=== PATIENT | female | born 1970 ===

== ENCOUNTER 2017-11-08 09:41 | Emergency (ER) | payer OTHER ==
[2017-11-08 09:56] VITALS: TEMP 97.7; O2SAT 98
--- NOTE | 2017-11-08 10:23 | ED PDOC ---
Lower Extremity Pain/Injury Time Seen by Provider: 11/08/17 10:02 Chief Complaint (Nursing): Hip Pain Chief Complaint (Provider): Hip Pain History Per: Patient History/Exam Limitations: no limitations Onset/Duration Of Symptoms: Days (x 2 weeks) Current Symptoms Are (Timing): Still Present Additional Complaint(s): 47 year old female presents to the ED complaining of left sided hip pain, onset 2 weeks ago. She reports pain radiates down her leg and worsens when she stands or ambulates. Has taken Advil multiple times with little relief. Denies any paresthesias, weakness and trauma. PMD: none provided Past Medical History Reviewed: Historical Data, Nursing Documentation, Vital Signs Vital Signs: Last Vital Signs Temp 97.7 F 11/08/17 09:53 Pulse 77 11/08/17 09:53 Resp 16 11/08/17 09:53 BP 132/92 H 11/08/17 09:53 Pulse Ox 98 11/08/17 09:53 - Medical History PMH: Diabetes (diet and weight controlled), HTN - Surgical History Surgical History: Tonsillectomy Other surgeries: Tubal ligation - Family History Family History: States: Diabetes - Social History Current smoker - smoking cessation education provided: No Alcohol: None Drugs: Denies - Home Medications Home Medications: Ambulatory Orders Medication Instructions Recorded Famotidine [Pepcid] 20 mg PO BID #30 tab 03/26/15 Omeprazole [Prilosec] 20 mg PO DAILY #30 ecc 03/26/15 Acetaminophen with Codeine 2 tab PO Q4H PRN #22 tab 10/18/15 [Tylenol with Codeine No. 3 300 mg-30 mg] Clindamycin [Cleocin] 300 mg PO TID #21 cap 10/18/15 Fluconazole [Diflucan] 150 mg PO QWK #2 tab 10/18/15 Ibuprofen 600 mg PO Q8H PRN #60 tab 10/18/15 Cyclobenzaprine [Cyclobenzaprine 10 mg PO TID PRN #15 tab 11/08/17 HCl] Naproxen [Naprosyn] 500 mg PO BID PRN #15 tablet 11/08/17 - Allergies Allergies/Adverse Reactions: Allergies Allergy/AdvReac Type Severity Reaction Status Date / Time diphenhydramine HCl Allergy ANGIOEDEMA Verified 11/08/17 09:53 [From Benadryl] Review of Systems ROS Statement: Except As Marked, All Systems Reviewed And Found Negative Constitutional: Negative for: Weakness, Other (paresthesia) Musculoskeletal: Positive for: Other (radiating left hip pain) Physical Exam - Reviewed Vital Signs Reviewed: Yes - Physical Exam Appears: Positive for: Non-toxic, No Acute Distress Head Exam: Positive for: ATRAUMATIC, NORMOCEPHALIC Skin: Positive for: Normal Color, Warm, Dry Eye Exam: Positive for: EOMI, Normal appearance, PERRL Extremity: Positive for: Normal ROM (full at left hip), Tenderness (left lateral hip ). Negative for: Swelling, Other (straight leg test) Neurologic/Psych: Positive for: Alert, Oriented. Negative for: Motor/Sensory Deficits - ECG O2 Sat by Pulse Oximetry: 98 (RA) Pulse Ox Interpretation: Normal Medical Decision Making Medical Decision Making: Time: Impression: Hip pain Plan: --Urine dipstick --urine --Flexeril 10 mg PO --Motrin 600 mg PO --Left hip x-ray Accession No. : [id number] Patient Name / ID : GUSTAVO EPSTEIN / [id number] Exam Date : 11/08/2017 10:13:41 ( Approved ) Study Comment : Sex / Age : F / 47Y Creator : Yan Tracy MD Dictator : Yan Tracy MD Kindergarten Aide : Apartment Community Manager : Yan Tracy MD Approver2 : Report Date : 11/08/2017 14:52:15 My Comment : PROCEDURE: Left Hip X-ray Radiographs. HISTORY: L hip pain COMPARISON: None. FINDINGS: BONES: Normal. No fracture. JOINTS: Normal. SOFT TISSUES: Normal. OTHER FINDINGS: None. IMPRESSION: Normal left hip radiographs. Scribe Attestation: Documented by Claritza Rothman, acting as a scribe for Cherrie Ruiz MD Provider Scribe Attestation: All medical record entries made by the Scribe were at my direction and personally dictated by me. I have reviewed the chart and agree that the record accurately reflects my personal performance of the history, physical exam, medical decision making, and the department course for this patient. I have also personally directed, reviewed, and agree with the discharge instructions and disposition. Disposition - Clinical Impression Clinical Impression: Hip pain - Disposition Referrals: [facility] [Outside] Disposition: Routine/Home Disposition Time: 11:28 Condition: STABLE Prescriptions: Cyclobenzaprine [Cyclobenzaprine HCl] 10 mg PO TID PRN #15 tab PRN Reason: Pain Naproxen [Naprosyn] 500 mg PO BID PRN #15 tablet PRN Reason: Pain, Moderate (4-7) Instructions: Hip Pain (ED) Forms: [employer] (Croatian)
[2017-11-08 11:53] VITALS: BP 129/85; PULSE 78; RESP 18
--- NOTE | 2017-11-08 14:53 | RAD ---
PROCEDURE: Left Hip X-ray Radiographs. HISTORY: L hip pain COMPARISON: None. FINDINGS: BONES: Normal. No fracture. JOINTS: Normal. SOFT TISSUES: Normal. OTHER FINDINGS: None. IMPRESSION: Normal left hip radiographs.
== END 2017-11-08 11:53 | disposition home or self-care (01) ==
LOC: H.ER 09:41
DX: M25.552 Pain in left hip (principal); E11.9 Type 2 diabetes mellitus without complications; I10 Essential (primary) hypertension

== ENCOUNTER 2018-05-30 07:46 | Observation (INO) | payer OTHER ==
[2018-05-30 07:52] VITALS: BMI 30.7
[2018-05-30] MEDS ORDERED: Sodium Chloride 0.9% 1,000 ML IV STA (08:41)
[2018-05-30 09:02] LABS: SQUAMOUS EPITHIAL 1 /hpf (0-5); URINE BILIRUBIN NEGATIVE (NEGATIVE); URINE BLOOD NEGATIVE (NEGATIVE); URINE CLARITY CLEAR (Clear); URINE COLOR STRAW (YELLOW); URINE GLUCOSE (UA) NEG (Normal); URINE LEUKOCYTE ESTERASE NEG Leu/uL (Negative); URINE PROTEIN NEGATIVE (NEGATIVE); URINE UROBILINOGEN 0.2-1.0 mg/dL (0.2-1.0)
[2018-05-30 09:03] LABS: BASO % 0.6 % (0.0-2.0); EOS # 0.1 K/uL (0.0-0.7); EOS % 0.8 % (0.0-4.0); LYMPH # 2.8 K/uL (1.0-4.3); LYMPH % 35.4 % (20.0-40.0); MEAN CELL VOLUME 78.4 fl (81.0-99.0); MEAN CORPUSCULAR HEMOGLOBIN 25.8 pg (27.0-31.0); MEAN CORPUSCULAR HGB CONC 32.9 g/dL (33.0-37.0); MEAN PLATELET VOLUME 9.1 fl (7.2-11.7); MONO # 0.5 K/uL (0.0-0.8); MONO % 6.4 % (0.0-10.0); NEUT # 4.6 K/uL (1.8-7.0); NEUT % 56.8 % (50.0-75.0); RBC 5.82 Mil/uL (3.80-5.20); RED CELL DISTRIBUTION WIDTH 14.6 % (11.5-14.5)
[2018-05-30 09:14] LABS: CALCIUM 9.6 mg/dL (8.4-10.2); GFR AFRICAN-AMERICAN > 60; GFR NON-AFRICAN AMERICAN > 60; LIPASE 64 U/L (23-300)
[2018-05-30 09:24] LABS: ALB/GLOB RATIO 1.3 (1.0-2.1); ALBUMIN 4.7 g/dL (3.5-5.0); ALT/SGPT 11 U/L (9-52); AST/SGOT 45 U/L (14-36); BLOOD UREA NITROGEN 15 mg/dl (7-17)
[2018-05-30] MEDS ORDERED: Sodium Chloride 0.9% 50 ML IV ONE (10:17)
[2018-05-30] MEDS ORDERED: Iohexol 300 100 ML IJ ONE (10:17)
--- NOTE | 2018-05-30 10:54 | CT ---
Date of service: 05/30/2018 PROCEDURE: CT Abdomen and Pelvis with contrast HISTORY: RUQ and R flank pain no hematuria COMPARISON: Abdomen pelvis CT with contrast 11/24/2015. TECHNIQUE: Contrast dose: Omnipaque 300, 95 cc Radiation dose: Total exam DLP = 562.59 mGy-cm. This CT exam was performed using one or more of the following dose reduction techniques: Automated exposure control, adjustment of the mA and/or kV according to patient size, and/or use of iterative reconstruction technique. FINDINGS: LOWER THORAX: Unremarkable. LIVER: Mildly diminished density of the liver suggests an element of hepatic steatosis diffusely. No mass or intrahepatic biliary dilatation appreciable. GALLBLADDER AND BILE DUCTS: Unremarkable. PANCREAS: Unremarkable. No gross lesion or ductal dilatation. SPLEEN: Unremarkable. ADRENALS: Unremarkable. No mass. KIDNEYS AND URETERS: Unremarkable. No hydronephrosis. No solid mass. VASCULATURE: Unremarkable. No aortic aneurysm. BOWEL: Unremarkable. No obstruction. No gross mural thickening. APPENDIX: Normal appendix. PERITONEUM: Unremarkable. No free fluid. No free air. LYMPH NODES: Unremarkable. No enlarged lymph nodes. BLADDER: Unremarkable. REPRODUCTIVE: Left adnexal compartment remarkable for crenating follicle identified. Prior creating follicle the right and compartment now resolved. BONES: No acute fracture. OTHER FINDINGS: None. IMPRESSION: 1. Unremarkable appearing gallbladder with mild hepatic steatosis seen throughout the liver which is otherwise unremarkable. 2. Crenating follicle left adnexal compartment.
--- NOTE | 2018-05-30 11:01 | US ---
Date of service: 05/30/2018 HISTORY: R flank RUQ pain x3d COMPARISON: None. TECHNIQUE: Sonographic evaluation of the abdomen. FINDINGS: LIVER: Measures 15.7 cm. Normal echogenicity of the liver parenchyma. No mass. No intrahepatic bile duct dilatation. A Marci's lobe is seen extending inferior to the lower pole right kidney at the right lobe liver. GALLBLADDER: Unremarkable. No gallstones. COMMON BILE DUCT: Measures 3.5 mm. No stones. No dilatation. PANCREAS: The tail of the pancreas is obscured by overlying bowel gas with remainder unremarkable. RIGHT KIDNEY: Measures 10.5cm. Normal echogenicity. No calculus, mass, or hydronephrosis. LEFT KIDNEY: Measures 11.1cm. Normal echogenicity. No calculus, mass, or hydronephrosis. SPLEEN: Normal in size and contour. No mass. AORTA: No aneurysmal dilatation. IVC: Unremarkable. OTHER FINDINGS: None. IMPRESSION: Incomplete imaging of the pancreas at the level of tail with remainder appearing unremarkable. No suspicious abdominal findings are otherwise identified throughout the exam.
--- NOTE | 2018-05-30 12:10 | RAD ---
Date of service: 05/30/2018 HISTORY: RUQ pain COMPARISON: 10/13/2008 TECHNIQUE: Chest PA and lateral FINDINGS: LUNGS: No active pulmonary disease. PLEURA: No significant pleural effusion identified. No pneumothorax apparent. CARDIOVASCULAR: Normal. OSSEOUS STRUCTURES: No significant abnormalities. VISUALIZED UPPER ABDOMEN: Normal. OTHER FINDINGS: None. IMPRESSION: No active disease. No significant interval change compared to the prior examination(s).
--- NOTE | 2018-05-30 14:53 | ED PDOC ---
HPI: General Adult Time Seen by Provider: 05/30/18 08:26 Chief Complaint (Nursing): Back Pain Chief Complaint (Provider): abdominal and back pain History Per: Patient History/Exam Limitations: no limitations Onset/Duration Of Symptoms: Days (3), Gradual Current Symptoms Are (Timing): Still Present Severity: Severe Additional Complaint(s): 48yo female states developed R abdominal pain radiating to the back x3 days. Took advil without relief yesterday. Today associated w nausea and loss appetite. Denies melena, BRBPR, hematemesis, fever or hematuria/dysuria. No prior history of similar pain. Notes pain worse with sitting still. Past Medical History Reviewed: Historical Data, Nursing Documentation, Vital Signs Vital Signs: Last Vital Signs Temp 98.4 F 05/30/18 07:52 Pulse 71 05/30/18 07:52 Resp 20 05/30/18 07:52 BP 129/89 05/30/18 07:52 Pulse Ox 99 05/30/18 16:17 - Medical History PMH: Diabetes (diet and weight controlled), HTN - Surgical History Surgical History: Tonsillectomy - Family History Family History: States: Diabetes - Living Arrangements Living Arrangements: With Family - Social History Current smoker - smoking cessation education provided: No Alcohol: None Drugs: Denies - Immunization History Hx Tetanus Toxoid Vaccination: No Hx Influenza Vaccination: No Hx Pneumococcal Vaccination: No - Home Medications Home Medications: Ambulatory Orders Medication Instructions Recorded No Known Home Med 05/30/18 - Allergies Allergies/Adverse Reactions: Allergies Allergy/AdvReac Type Severity Reaction Status Date / Time diphenhydramine HCl Allergy ANGIOEDEMA Verified 05/30/18 08:06 [From Benadryl] Review of Systems Constitutional: Negative for: Fever, Weight loss Eyes: Negative for: Vision Change ENT: Negative for: Nose Discharge Cardiovascular: Negative for: Chest Pain Respiratory: Negative for: Shortness of Breath Gastrointestinal: Positive for: Nausea, Abdominal Pain. Negative for: Constipation, Melena, Rectal Pain Genitourinary Female: Negative for: Dysuria, Frequency, Hematuria Musculoskeletal: Positive for: Back Pain. Negative for: Neck Pain Skin: Negative for: Rash, Lesions Neurological: Positive for: Dizziness. Negative for: Weakness, Numbness, Confusion Psych: Negative for: Depression Physical Exam - Reviewed Nursing Documentation Reviewed: Yes Vital Signs Reviewed: Yes - Physical Exam Appears: Positive for: Well, Non-toxic, No Acute Distress Head Exam: Positive for: ATRAUMATIC, NORMAL INSPECTION, NORMOCEPHALIC Skin: Positive for: Normal Color, Warm, DRY Eye Exam: Positive for: EOMI, Normal appearance, PERRL ENT: Positive for: Normal ENT Inspection Neck: Positive for: Normal, Painless ROM Cardiovascular/Chest: Positive for: Regular Rate, Rhythm Respiratory: Positive for: CNT, Normal Breath Sounds Pulses-Radial (L): 3+/4+ Pulses-Radial (R): 3+/4+ Gastrointestinal/Abdominal: Positive for: Soft, Tenderness (RUQ). Negative for : Guarding, Rebound Back: Positive for: R CVA Tenderness Extremity: Positive for: Normal ROM Neurologic/Psych: Positive for: Alert, Oriented. Negative for: Motor/Sensory Deficits - Laboratory Results Result Diagrams: 05/30/18 08:47 05/30/18 08:47 - ECG O2 Sat by Pulse Oximetry: 99 Medical Decision Making Medical Decision Making: workup for RUQ pain initiated, labs and analgesia ordered US abdomen report reviewed. CT abd pelv thus ordered Labs reviewed and clinically unremarkable Further pain medicine required for relief of pain protonix IV ordered Accession No. : [id number] Patient Name / ID : GUSTAVO EPSTEIN / [id number] Exam Date : 05/30/2018 10:24:56 ( Approved ) Study Comment : Sex / Age : F / 48Y Creator : Perdo Spivey MD Dictator : Pedro Spivey MD Small Business Director : Lead Android Developer : Pedro Spivey MD Approver2 : Report Date : 05/30/2018 10:52:54 My Comment : Date of service: 05/30/2018 PROCEDURE: CT Abdomen and Pelvis with contrast HISTORY: RUQ and R flank pain no hematuria COMPARISON: Abdomen pelvis CT with contrast 11/24/2015. TECHNIQUE: Contrast dose: Omnipaque 300, 95 cc Radiation dose: Total exam DLP = 562.59 mGy-cm. This CT exam was performed using one or more of the following dose reduction techniques: Automated exposure control, adjustment of the mA and/or kV according to patient size, and/or use of iterative reconstruction technique. FINDINGS: LOWER THORAX: Unremarkable. LIVER: Mildly diminished density of the liver suggests an element of hepatic steatosis diffusely. No mass or intrahepatic biliary dilatation appreciable. GALLBLADDER AND BILE DUCTS: Unremarkable. PANCREAS: Unremarkable. No gross lesion or ductal dilatation. SPLEEN: Unremarkable. ADRENALS: Unremarkable. No mass. KIDNEYS AND URETERS: Unremarkable. No hydronephrosis. No solid mass. VASCULATURE: Unremarkable. No aortic aneurysm. BOWEL: Unremarkable. No obstruction. No gross mural thickening. APPENDIX: Normal appendix. PERITONEUM: Unremarkable. No free fluid. No free air. LYMPH NODES: Unremarkable. No enlarged lymph nodes. BLADDER: Unremarkable. REPRODUCTIVE: Left adnexal compartment remarkable for crenating follicle identified. Prior creating follicle the right and compartment now resolved. BONES: No acute fracture. OTHER FINDINGS: None. IMPRESSION: 1. Unremarkable appearing gallbladder with mild hepatic steatosis seen throughout the liver which is otherwise unremarkable. 2. Crenating follicle left adnexal compartment. --------- patient remains in pain and not responsive to multiple doses narcotics. Obs in ED 6hrs without improvement. Will place in obs d/w Dr Finney and acquire GI consult d/w Dr Bojorquez GI, requests MRCP and will consult Disposition - Clinical Impression Clinical Impression: Abdominal pain, Back pain - Patient ED Disposition Is Patient to be Admitted: Yes Counseled Patient/Family Regarding: Studies Performed, Diagnosis - Disposition Disposition Time: 15:01 Condition: STABLE
[2018-05-30] MEDS ORDERED: Bisacodyl 5mg EC Tab PO ONE (17:55)
[2018-05-30] MEDS ORDERED: Pneumococcal 23-Valent Vaccine IM ONE (20:17)
[2018-05-30] MEDS: Sodium Chloride 0.45% 500ml 1,000 ML IV SCH (20:36)
[2018-05-30] MEDS: POLYETHYLENE GLYCOL 3350 17 GM/Dose PACKET PO SCH (21:57)
[2018-05-31 07:35] LABS: BASO % 0.5 % (0.0-2.0); EOS # 0.1 K/uL (0.0-0.7); HEMOGLOBIN 13.8 g/dL (12.0-16.0); LYMPH # 2.6 K/uL (1.0-4.3); LYMPH % 33.4 % (20.0-40.0); MEAN CELL VOLUME 77.7 fl (81.0-99.0); MEAN CORPUSCULAR HEMOGLOBIN 25.6 pg (27.0-31.0); MEAN PLATELET VOLUME 9.1 fl (7.2-11.7); MONO # 0.4 K/uL (0.0-0.8); MONO % 5.1 % (0.0-10.0); NEUT # 4.6 K/uL (1.8-7.0); NRBC % 0.2 % (0.0-0.0); RBC 5.38 Mil/uL (3.80-5.20); RED CELL DISTRIBUTION WIDTH 14.2 % (11.5-14.5); WHITE BLOOD COUNT 7.6 K/uL (4.8-10.8)
[2018-05-31 08:00] LABS: T4 7.32 ug/dl (5.5-11.0)
[2018-05-31 08:06] LABS: ALB/GLOB RATIO 1.5 (1.0-2.1); ALBUMIN 3.8 g/dL (3.5-5.0); ALT/SGPT 27 U/L (9-52); AST/SGOT 15 U/L (14-36); BLOOD UREA NITROGEN 10 mg/dl (7-17); GFR AFRICAN-AMERICAN > 60; GFR NON-AFRICAN AMERICAN > 60; HDL CHOLESTEROL 45 MG/DL (30-70); LDL CHOLESTEROL 116 mg/dL (0-129)
--- NOTE | 2018-05-31 08:53 | CP.PCM.CON ---
<Leroy Finney - Last Filed: 05/31/18 13:42> Meds Allergies/Adverse Reactions: Allergies Allergy/AdvReac Type Severity Reaction Status Date / Time diphenhydramine HCl Allergy ANGIOEDEMA Verified 05/30/18 08:06 [From Benadandrezl] - Medications Medications: Current Medications Sodium Chloride (Sodium Chloride 0.45%) 1,000 mls @ 80 mls/hr IV .[id number] KEVON Stop: 05/31/18 19:58 Last Admin: 05/31/18 09:55 Dose: Not Given Morphine Sulfate (Morphine) 2 mg IVP Q4 PRN PRN Reason: Pain, moderate (4-7) Last Admin: 05/31/18 09:44 Dose: 2 mg Polyethylene Glycol (Miralax) 17 gm PO BID KEVON Last Admin: 05/31/18 09:55 Dose: Not Given Results - Vital Signs Recent Vital Signs: Last Vital Signs Temp 98.0 F 05/31/18 08:27 Pulse 76 05/31/18 08:27 Resp 19 05/31/18 08:27 BP 103/70 05/31/18 08:27 Pulse Ox 97 05/31/18 08:27 - Labs Result Diagrams: 05/31/18 06:30 05/31/18 06:30 Labs: Laboratory Results - last 24 hr 05/30/18 05/30/18 05/31/18 17:40 21:38 05:34 WBC RBC Hgb Hct MCV MCH MCHC RDW Plt Count MPV Neut % (Auto) Lymph % (Auto) Cobb % (Auto) Eos % (Auto) Baso % (Auto) Neut # (Auto) Lymph # (Auto) Cobb # (Auto) Eos # (Auto) Baso # (Auto) Sodium Potassium 4.6 Chloride Carbon Dioxide Anion Gap BUN Creatinine Est GFR ( Amer) Est GFR (Non-Af Amer) POC Glucose (mg/dL) 100 100 Random Glucose Hemoglobin A1c Calcium Iron TIBC % Saturation Ferritin Total Bilirubin AST ALT Alkaline Phosphatase Total Protein Albumin Globulin Albumin/Globulin Ratio Triglycerides Cholesterol LDL Cholesterol Direct HDL Cholesterol Carcinoembryonic Ag Thyroxine (T4) TSH 3rd Generation 05/31/18 05/31/18 05/31/18 06:30 06:30 06:30 WBC 7.6 RBC 5.38 H Hgb 13.8 Hct 41.8 MCV 77.7 L MCH 25.6 L MCHC 33.0 RDW 14.2 Plt Count 175 MPV 9.1 Neut % (Auto) 60.0 Lymph % (Auto) 33.4 Cobb % (Auto) 5.1 Eos % (Auto) 1.0 Baso % (Auto) 0.5 Neut # (Auto) 4.6 Lymph # (Auto) 2.6 Cobb # (Auto) 0.4 Eos # (Auto) 0.1 Baso # (Auto) 0.0 Sodium 140 Potassium 4.6 Chloride 106 Carbon Dioxide 23 Anion Gap 16 BUN 10 Creatinine 0.7 Est GFR ( Amer) > 60 Est GFR (Non-Af Amer) > 60 POC Glucose (mg/dL) Random Glucose 96 Hemoglobin A1c 6.9 H Calcium 9.0 Iron TIBC % Saturation Ferritin Total Bilirubin 0.6 AST 15 ALT 27 Alkaline Phosphatase 75 Total Protein 6.4 Albumin 3.8 Globulin 2.6 Albumin/Globulin Ratio 1.5 Triglycerides 130 Cholesterol 187 LDL Cholesterol Direct 116 HDL Cholesterol 45 Carcinoembryonic Ag 1.3 Thyroxine (T4) 7.32 TSH 3rd Generation 0.92 05/31/18 05/31/18 05/31/18 08:58 09:40 10:34 WBC RBC Hgb Hct MCV MCH MCHC RDW Plt Count MPV Neut % (Auto) Lymph % (Auto) Cobb % (Auto) Eos % (Auto) Baso % (Auto) Neut # (Auto) Lymph # (Auto) Cobb # (Auto) Eos # (Auto) Baso # (Auto) Sodium Potassium Chloride Carbon Dioxide Anion Gap BUN Creatinine Est GFR ( Amer) Est GFR (Non-Af Amer) POC Glucose (mg/dL) 126 H Random Glucose Hemoglobin A1c Calcium Iron 110 TIBC 397 % Saturation 28 Ferritin 25.6 Total Bilirubin AST ALT Alkaline Phosphatase Total Protein Albumin Globulin Albumin/Globulin Ratio Triglycerides Cholesterol LDL Cholesterol Direct HDL Cholesterol Carcinoembryonic Ag Thyroxine (T4) TSH 3rd Generation <Jefferson Hansen - Last Filed: 05/31/18 14:01> History of Present Illness - History of Present Illness History of Present Illness: GI Fellow PGY4, Consult note. Carine Mosher is a 48 F with history of gallstones presenting with new abdominal pain. Patient's pain started 2 days ago with out obvious incident and worsened to 8/10 pressure that was mostly in her right abdomen and right mid back. Pain was constant and not associated with position, food or medication use. She denied vomiting, diarrhea, nausea, fever, SOB, sweating, jaw pain, lightheadedness, numbness/weakness. She states she has been having hard stool, but having BMs regularly. Her LMP was last month. PMHx - Gallstone while 15yrs ago PSHx - none FMHx - denies GI related cancer or liver disease SocHx - Denies alcohol. Daily smoker, "2 cigarettes per day". 12pt ROS completed and negative except for above. Past Patient History - Past Medical History & Family History Past Medical History?: Yes - Past Social History Smoking Status: Light Smoker < 10 Cigarettes Daily - CARDIAC Hx Hypertension: Yes (Controlled with diet/Weight loss) - ENDOCRINE/METABOLIC Hx Diabetes Mellitus Type 2: Yes (Controlled with diet/weight loss) - HEMATOLOGICAL/ONCOLOGICAL Hx Blood Disorders: No - INTEGUMENTARY Hx Dermatological Problems: No - MUSCULOSKELETAL/RHEUMATOLOGICAL Hx Musculoskeletal Disorders: No Hx Falls: No - GASTROINTESTINAL Hx Gastrointestinal Disorders: No - GENITOURINARY/GYNECOLOGICAL Hx Genitourinary Disorders: No - PSYCHIATRIC Hx Psychophysiologic Disorder: No Hx Substance Use: No - SURGICAL HISTORY Hx Surgeries: Yes Hx Tonsillectomy: Yes Hx Tubal Ligation: Yes - ANESTHESIA Hx Anesthesia: Yes Hx Anesthesia Reactions: No Meds - Medications Medications: Current Medications Sodium Chloride (Sodium Chloride 0.45%) 1,000 mls @ 80 mls/hr IV .[id number] [facility] Stop: 05/31/18 19:58 Last Admin: 05/30/18 20:36 Dose: 80 mls/hr Morphine Sulfate (Morphine) 2 mg IVP Q4 PRN PRN Reason: Pain, moderate (4-7) Last Admin: 05/31/18 04:15 Dose: 2 mg Polyethylene Glycol (Miralax) 17 gm PO BID [facility] Last Admin: 05/30/18 21:57 Dose: Not Given Physical Exam - Constitutional Appears: Well, Non-toxic, No Acute Distress - Head Exam Head Exam: ATRAUMATIC, NORMAL INSPECTION - Eye Exam Eye Exam: EOMI, Normal appearance - ENT Exam ENT Exam: Normal Exam - Respiratory Exam Respiratory Exam: Clear to Auscultation Bilateral, NORMAL BREATHING PATTERN. absent: Stridor - Cardiovascular Exam Cardiovascular Exam: REGULAR RHYTHM, +S1, +S2 - GI/Abdominal Exam GI & Abdominal Exam: Hypoactive Bowel Sounds, Soft, Tenderness. absent: Guarding - Neurological Exam Neurological exam: CN II-XII Intact, Normal Gait, Oriented x3 - Psychiatric Exam Psychiatric exam: Normal Affect, Normal Mood - Skin Skin Exam: Dry, Intact, Warm Results - Vital Signs Recent Vital Signs: Last Vital Signs Temp 98.0 F 05/31/18 08:27 Pulse 76 05/31/18 08:27 Resp 19 05/31/18 08:27 BP 103/70 05/31/18 08:27 Pulse Ox 97 05/31/18 08:27 - Labs Result Diagrams: 05/31/18 06:30 05/31/18 06:30 Labs: Laboratory Results - last 24 hr 05/30/18 05/30/18 05/30/18 08:47 08:47 08:47 WBC 8.0 RBC 5.82 H Hgb 15.0 Hct 45.6 MCV 78.4 L MCH 25.8 L MCHC 32.9 L RDW 14.6 H Plt Count 206 MPV 9.1 Neut % (Auto) 56.8 Lymph % (Auto) 35.4 Cobb % (Auto) 6.4 Eos % (Auto) 0.8 Baso % (Auto) 0.6 Neut # (Auto) 4.6 Lymph # (Auto) 2.8 Cobb # (Auto) 0.5 Eos # (Auto) 0.1 Baso # (Auto) 0.0 Sodium 138 Potassium 6.1 H Chloride 103 Carbon Dioxide 27 Anion Gap 14 BUN 15 Creatinine 0.6 L Est GFR ( Amer) > 60 Est GFR (Non-Af Amer) > 60 POC Glucose (mg/dL) Random Glucose 123 H Calcium 9.6 Total Bilirubin 1.0 AST 45 H ALT 11 Alkaline Phosphatase 89 Total Protein 8.2 Albumin 4.7 Globulin 3.5 Albumin/Globulin Ratio 1.3 Triglycerides Cholesterol LDL Cholesterol Direct HDL Cholesterol Lipase 64 Thyroxine (T4) TSH 3rd Generation Urine Color Straw Urine Clarity Clear Urine pH 7.0 Ur Specific Fate < 1.005 Urine Protein Negative Urine Glucose (UA) Neg Urine Ketones Negative Urine Blood Negative Urine Nitrate Negative Urine Bilirubin Negative Urine Urobilinogen 0.2-1.0 Ur Leukocyte Esterase Neg Urine RBC (Auto) < 1 Urine Microscopic WBC < 1 Ur Squamous Epith Cells 1 05/30/18 05/30/18 05/31/18 17:40 21:38 06:30 WBC 7.6 RBC 5.38 H Hgb 13.8 Hct 41.8 MCV 77.7 L MCH 25.6 L MCHC 33.0 RDW 14.2 Plt Count 175 MPV 9.1 Neut % (Auto) 60.0 Lymph % (Auto) 33.4 Cobb % (Auto) 5.1 Eos % (Auto) 1.0 Baso % (Auto) 0.5 Neut # (Auto) 4.6 Lymph # (Auto) 2.6 Cobb # (Auto) 0.4 Eos # (Auto) 0.1 Baso # (Auto) 0.0 Sodium Potassium 4.6 Chloride Carbon Dioxide Anion Gap BUN Creatinine Est GFR ( Amer) Est GFR (Non-Af Amer) POC Glucose (mg/dL) 100 Random Glucose Calcium Total Bilirubin AST ALT Alkaline Phosphatase Total Protein Albumin Globulin Albumin/Globulin Ratio Triglycerides Cholesterol LDL Cholesterol Direct HDL Cholesterol Lipase Thyroxine (T4) TSH 3rd Generation Urine Color Urine Clarity Urine pH Ur Specific Fate Urine Protein Urine Glucose (UA) Urine Ketones Urine Blood Urine Nitrate Urine Bilirubin Urine Urobilinogen Ur Leukocyte Esterase Urine RBC (Auto) Urine Microscopic WBC Ur Squamous Epith Cells 05/31/18 06:30 WBC RBC Hgb Hct MCV MCH MCHC RDW Plt Count MPV Neut % (Auto) Lymph % (Auto) Cobb % (Auto) Eos % (Auto) Baso % (Auto) Neut # (Auto) Lymph # (Auto) Cobb # (Auto) Eos # (Auto) Baso # (Auto) Sodium 140 Potassium 4.6 Chloride 106 Carbon Dioxide 23 Anion Gap 16 BUN 10 Creatinine 0.7 Est GFR ( Amer) > 60 Est GFR (Non-Af Amer) > 60 POC Glucose (mg/dL) Random Glucose 96 Calcium 9.0 Total Bilirubin 0.6 AST 15 ALT 27 Alkaline Phosphatase 75 Total Protein 6.4 Albumin 3.8 Globulin 2.6 Albumin/Globulin Ratio 1.5 Triglycerides 130 Cholesterol 187 LDL Cholesterol Direct 116 HDL Cholesterol 45 Lipase Thyroxine (T4) 7.32 TSH 3rd Generation 0.92 Urine Color Urine Clarity Urine pH Ur Specific Fate Urine Protein Urine Glucose (UA) Urine Ketones Urine Blood Urine Nitrate Urine Bilirubin Urine Urobilinogen Ur Leukocyte Esterase Urine RBC (Auto) Urine Microscopic WBC Ur Squamous Epith Cells Assessment & Plan - Assessment and Plan (Free Text) Assessment: 48F with history of gallstones presenting with new abdominal pain and negative abdominal imaging for acute pathology. CT abdomen/pelv with moderate amount of stool. #Abdominal/back pain #Possible constipation #History of gallstones #Microcytic anemia, chronic Plan: -CT and US imaging reviewed, no acute findings -Treat for constipation: Miralax, dulcolax, enema. Abdominal pain improved -Back pain still persists. Likely MSK. -w/u for iron deficiency anemia: occult stool, iron panel. Most likely related to menses. -Agree with TSH -Diet: regular as tolerated -Okay to d/c home per GI perspective - Date & Time Date: 05/31/18 Time: 08:54
[2018-05-31] MEDS: Sodium Chloride 0.45% 500ml 1,000 ML IV SCH ×2 (09:55→15:03)
[2018-05-31] MEDS: POLYETHYLENE GLYCOL 3350 17 GM/Dose PACKET PO SCH (09:55)
[2018-05-31 10:08] LABS: IRON 110 ug/dL (37-170)
[2018-05-31 10:17] LABS: % IRON SATURATION 28 % (20-55); TOTAL IRON BINDING CAPACITY 397 ug/dL (250-450)
--- NOTE | 2018-05-31 13:00 | CP.PCM.HP ---
History of Present Illness - History of Present Illness History of Present Illness: CC: Abdominal pain. 48 y/o F walk in to [facility] on 05/30/18 to be evaluated for abdominal pain that began on 05/27/18, gradually increased on DOA, Pt took Advil with no relief of symptom. Initially, c/o of abdominal pain, more prominent to R abdomen/R Flank, pain was sharp, burning sensation, intermittent, severe intensity 10:10, associated to nausea/ constipation. Worsening symptom: Loss of appetite. Aggravated factor: Prolonged sitting. Pt denied: fever, chills, vomiting, diarrhea, melena, urinary symptoms, CP, palpitations, dizziness, syncope, SOB, cough, sick contact, recent travel out of [facility]. CT Abd/Pelv and Abdomen U-S: No acute findings. Present on Admission - Present on Admission Any Indicators Present on Admission: No Review of Systems - Constitutional Constitutional: Other (negative) - EENT Eyes: Other (negative) Ears: Other (negative) Nose/Mouth/Throat: Other (negative) - Cardiovascular Cardiovascular: Other (negative) - Respiratory Respiratory: Other (negative) - Gastrointestinal Gastrointestinal: Abdominal Pain, Constipation, Nausea - Genitourinary Genitourinary: Flank Pain, Other (negative) - Musculoskeletal Musculoskeletal: Other (negative) - Integumentary Integumentary: Other (negative) - Neurological Neurological: Other (negative) - Psychiatric Psychiatric: Other (negative) - Endocrine Endocrine: Other (negative) - Hematologic/Lymphatic Hematologic: Other (negative) Past Patient History - Past Medical History & Family History Past Medical History?: Yes Pertinent Family History: Unknown - Past Social History Smoking Status: Light Smoker < 10 Cigarettes Daily Alcohol: Social Drugs: Denies Home Situation {Lives}: Alone - CARDIAC Hx Cardiac Disorders: Yes Hx Hypertension: Yes (Controlled with diet/Weight loss) - PULMONARY Hx Respiratory Disorders: No - NEUROLOGICAL Hx Neurological Disorder: No - HEENT Hx HEENT Problems: No - RENAL Hx Chronic Kidney Disease: No - ENDOCRINE/METABOLIC Hx Endocrine Disorders: Yes Hx Diabetes Mellitus Type 2: Yes (Controlled with diet/weight loss) - HEMATOLOGICAL/ONCOLOGICAL Hx Blood Disorders: Yes Hx Anemia: Yes - INTEGUMENTARY Hx Dermatological Problems: No - MUSCULOSKELETAL/RHEUMATOLOGICAL Hx Musculoskeletal Disorders: No Hx Falls: No - GASTROINTESTINAL Hx Gastrointestinal Disorders: No - GENITOURINARY/GYNECOLOGICAL Hx Genitourinary Disorders: No - PSYCHIATRIC Hx Psychophysiologic Disorder: No Hx Substance Use: No - SURGICAL HISTORY Hx Surgeries: Yes Hx Tonsillectomy: Yes Hx Tubal Ligation: Yes - ANESTHESIA Hx Anesthesia: Yes Hx Anesthesia Reactions: No Meds Allergies/Adverse Reactions: Allergies Allergy/AdvReac Type Severity Reaction Status Date / Time diphenhydramine HCl Allergy ANGIOEDEMA Verified 05/30/18 08:06 [From Benadryl] Physical Exam - Constitutional Appears: No Acute Distress - Head Exam Head Exam: NORMAL INSPECTION - Eye Exam Eye Exam: PERRL - ENT Exam ENT Exam: Normal Exam - Neck Exam Neck exam: Positive for: Normal Inspection - Respiratory Exam Respiratory Exam: Clear to Auscultation Bilateral - Cardiovascular Exam Cardiovascular Exam: REGULAR RHYTHM - GI/Abdominal Exam GI & Abdominal Exam: Hypoactive Bowel Sounds, Soft, Tenderness (mild). absent: Guarding, Rebound - Extremities Exam Extremities exam: Positive for: normal inspection - Back Exam Back exam: NORMAL INSPECTION - Neurological Exam Neurological exam: Alert, Oriented x3 Additional comments: No motor/sensory deficit. - Psychiatric Exam Psychiatric exam: Normal Mood - Skin Skin Exam: Normal Color, Warm Results - Vital Signs Recent Vital Signs: Last Vital Signs Temp 98.0 F 05/31/18 08:27 Pulse 76 05/31/18 08:27 Resp 19 05/31/18 08:27 BP 103/70 05/31/18 08:27 Pulse Ox 97 05/31/18 08:27 reviewed Pravin - Labs Result Diagrams: 05/31/18 06:30 05/31/18 06:30 Labs: Laboratory Results - last 24 hr 05/30/18 05/30/18 05/31/18 17:40 21:38 05:34 WBC RBC Hgb Hct MCV MCH MCHC RDW Plt Count MPV Neut % (Auto) Lymph % (Auto) Elliott % (Auto) Eos % (Auto) Baso % (Auto) Neut # (Auto) Lymph # (Auto) Elliott # (Auto) Eos # (Auto) Baso # (Auto) Sodium Potassium 4.6 Chloride Carbon Dioxide Anion Gap BUN Creatinine Est GFR ( Amer) Est GFR (Non-Af Amer) POC Glucose (mg/dL) 100 100 Random Glucose Hemoglobin A1c Calcium Iron TIBC % Saturation Ferritin Total Bilirubin AST ALT Alkaline Phosphatase Total Protein Albumin Globulin Albumin/Globulin Ratio Triglycerides Cholesterol LDL Cholesterol Direct HDL Cholesterol Carcinoembryonic Ag Thyroxine (T4) TSH 3rd Generation 05/31/18 05/31/18 05/31/18 06:30 06:30 06:30 WBC 7.6 RBC 5.38 H Hgb 13.8 Hct 41.8 MCV 77.7 L MCH 25.6 L MCHC 33.0 RDW 14.2 Plt Count 175 MPV 9.1 Neut % (Auto) 60.0 Lymph % (Auto) 33.4 Elliott % (Auto) 5.1 Eos % (Auto) 1.0 Baso % (Auto) 0.5 Neut # (Auto) 4.6 Lymph # (Auto) 2.6 Elliott # (Auto) 0.4 Eos # (Auto) 0.1 Baso # (Auto) 0.0 Sodium 140 Potassium 4.6 Chloride 106 Carbon Dioxide 23 Anion Gap 16 BUN 10 Creatinine 0.7 Est GFR ( Amer) > 60 Est GFR (Non-Af Amer) > 60 POC Glucose (mg/dL) Random Glucose 96 Hemoglobin A1c 6.9 H Calcium 9.0 Iron TIBC % Saturation Ferritin Total Bilirubin 0.6 AST 15 ALT 27 Alkaline Phosphatase 75 Total Protein 6.4 Albumin 3.8 Globulin 2.6 Albumin/Globulin Ratio 1.5 Triglycerides 130 Cholesterol 187 LDL Cholesterol Direct 116 HDL Cholesterol 45 Carcinoembryonic Ag 1.3 Thyroxine (T4) 7.32 TSH 3rd Generation 0.92 05/31/18 05/31/18 05/31/18 08:58 09:40 10:34 WBC RBC Hgb Hct MCV MCH MCHC RDW Plt Count MPV Neut % (Auto) Lymph % (Auto) Elliott % (Auto) Eos % (Auto) Baso % (Auto) Neut # (Auto) Lymph # (Auto) Elliott # (Auto) Eos # (Auto) Baso # (Auto) Sodium Potassium Chloride Carbon Dioxide Anion Gap BUN Creatinine Est GFR ( Amer) Est GFR (Non-Af Amer) POC Glucose (mg/dL) 126 H Random Glucose Hemoglobin A1c Calcium Iron 110 TIBC 397 % Saturation 28 Ferritin 25.6 Total Bilirubin AST ALT Alkaline Phosphatase Total Protein Albumin Globulin Albumin/Globulin Ratio Triglycerides Cholesterol LDL Cholesterol Direct HDL Cholesterol Carcinoembryonic Ag Thyroxine (T4) TSH 3rd Generation reviewed J.P. - EKG Data EKG comments: reviewed J.P. - Imaging and Cardiology US - abdomen Status: Report reviewed by me (Pravin) CT scan - abdomen Status: Report reviewed by (Pravin) CT scan - pelvis Status: Report reviewed by me (Pravin) Assessment & Plan (1) Acute abdominal pain in right flank Status: Acute Priority: High (2) Constipation Status: Acute Priority: High - Assessment and Plan (Free Text) Plan: Continue IV fluid, Enema, Polyethylene, Morphine. GI consult appreciated. - Date & Time Date: 05/31/18 Time: 11:30
--- NOTE | 2018-05-31 13:54 | CT ---
Date of service: 05/31/2018 PROCEDURE: CT Lumbar Spine without contrast HISTORY: Back pain COMPARISON: None available. TECHNIQUE: Axial computed tomography images were obtained of the lumbar spine without the use of intravenous contrast. Coronal and sagittal reformatted images were created and reviewed. Radiation dose: Total exam DLP = 1112.97 mGy-cm. This CT exam was performed using one or more of the following dose reduction techniques: Automated exposure control, adjustment of the mA and/or kV according to patient size, and/or use of iterative reconstruction technique. FINDINGS: VERTEBRAE: Unremarkable. No fracture. Normal alignment. DISCS/SPINAL CANAL/NEURAL FORAMINA: L1-2: Unremarkable. L2-3: Unremarkable. L3-4: Minimal disc bulging flattens the ventral thecal sac without generalized central stenosis occurring. Lateral recess stenosis is appreciated mildly bilaterally. L4-5: No central canal or neural foraminal stenosis bilaterally. Limited flattening the ventral thecal sac occurs due to generalized disc bulging. L5-S1: A circumferential disc bulge abuts the ventral thecal sac without stenosis of the central canal or neural foramina. PARASPINAL SOFT TISSUES: Unremarkable. OTHER FINDINGS: None. IMPRESSION: 1. Multilevel limited disc bulging is appreciated from L3-4 to L5-S1 inclusively with limited lateral recess stenosis occurring at L3-4 and no additional stenosis at the remainder. 2. Normal curvature without fracture, spondylolisthesis or suspicious lytic or blastic change.
[2018-06-01 00:32] VITALS: RESP 20
[2018-06-01] MEDS: POLYETHYLENE GLYCOL 3350 17 GM/Dose PACKET PO SCH ×2 (08:11→08:14)
[2018-06-01 08:56] VITALS: BP 128/62; PULSE 74; TEMP 97.8; O2SAT 98
--- NOTE | 2018-06-01 19:31 | CP.PCM.DIS ---
Provider - Provider Date of Admission: 05/30/18 14:51 Attending physician: Leroy Finney MD Diagnosis - Discharge Diagnosis (1) Acute abdominal pain in right flank Status: Acute Priority: High (2) Constipation Status: Acute Priority: High Hospital Course - Lab Results Lab Results: Most Recent Lab Values WBC 7.6 K/uL (4.8-10.8) 05/31/18 06:30 RBC 5.38 Mil/uL (3.80-5.20) H 05/31/18 06:30 Hgb 13.8 g/dL (12.0-16.0) 05/31/18 06:30 Hct 41.8 % (34.0-47.0) 05/31/18 06:30 MCV 77.7 fl (81.0-99.0) L 05/31/18 06:30 MCH 25.6 pg (27.0-31.0) L 05/31/18 06:30 MCHC 33.0 g/dL (33.0-37.0) 05/31/18 06:30 RDW 14.2 % (11.5-14.5) 05/31/18 06:30 Plt Count 175 K/uL (130-400) 05/31/18 06:30 MPV 9.1 fl (7.2-11.7) 05/31/18 06:30 Neut % (Auto) 60.0 % (50.0-75.0) 05/31/18 06:30 Lymph % (Auto) 33.4 % (20.0-40.0) 05/31/18 06:30 Amelia % (Auto) 5.1 % (0.0-10.0) 05/31/18 06:30 Eos % (Auto) 1.0 % (0.0-4.0) 05/31/18 06:30 Baso % (Auto) 0.5 % (0.0-2.0) 05/31/18 06:30 Neut # (Auto) 4.6 K/uL (1.8-7.0) 05/31/18 06:30 Lymph # (Auto) 2.6 K/uL (1.0-4.3) 05/31/18 06:30 Amelia # (Auto) 0.4 K/uL (0.0-0.8) 05/31/18 06:30 Eos # (Auto) 0.1 K/uL (0.0-0.7) 05/31/18 06:30 Baso # (Auto) 0.0 K/uL (0.0-0.2) 05/31/18 06:30 Sodium 140 mmol/l (132-148) 05/31/18 06:30 Potassium 4.6 MMOL/L (3.6-5.0) 05/31/18 06:30 Chloride 106 mmol/L (98-107) 05/31/18 06:30 Carbon Dioxide 23 mmol/L (22-30) 05/31/18 06:30 Anion Gap 16 (10-20) 05/31/18 06:30 BUN 10 mg/dl (7-17) 05/31/18 06:30 Creatinine 0.7 mg/dl (0.7-1.2) 05/31/18 06:30 Est GFR ( Amer) > 60 05/31/18 06:30 Est GFR (Non-Af Amer) > 60 05/31/18 06:30 POC Glucose (mg/dL) 89 mg/dL (65-110) 05/31/18 16:48 Random Glucose 96 mg/dL (65-105) 05/31/18 06:30 Hemoglobin A1c 6.9 % (4.2-6.5) H 05/31/18 06:30 Calcium 9.0 mg/dL (8.4-10.2) 05/31/18 06:30 Iron 110 ug/dL (37-170) 05/31/18 09:40 TIBC 397 ug/dL (250-450) 05/31/18 09:40 % Saturation 28 % (20-55) 05/31/18 09:40 Ferritin 25.6 ng/Ml (6.24-137.0) 05/31/18 08:58 Total Bilirubin 0.6 mg/dl (0.2-1.3) 05/31/18 06:30 AST 15 U/L (14-36) 05/31/18 06:30 ALT 27 U/L (9-52) 05/31/18 06:30 Alkaline Phosphatase 75 U/L (38-126) 05/31/18 06:30 Total Protein 6.4 G/DL (6.3-8.2) 05/31/18 06:30 Albumin 3.8 g/dL (3.5-5.0) 05/31/18 06:30 Globulin 2.6 gm/dL (2.2-3.9) 05/31/18 06:30 Albumin/Globulin Ratio 1.5 (1.0-2.1) 05/31/18 06:30 Triglycerides 130 mg/DL (0-149) 05/31/18 06:30 Cholesterol 187 mg/dL (0-199) 05/31/18 06:30 LDL Cholesterol Direct 116 mg/dL (0-129) 05/31/18 06:30 HDL Cholesterol 45 MG/DL (30-70) 05/31/18 06:30 Lipase 64 U/L (23-300) 05/30/18 08:47 Carcinoembryonic Ag 1.3 ng/mL (0-3.0) 05/31/18 06:30 Thyroxine (T4) 7.32 ug/dl (5.5-11.0) 05/31/18 06:30 TSH 3rd Generation 0.92 mIU/ML (0.46-4.68) 05/31/18 06:30 Urine Color Straw (YELLOW) 05/30/18 08:47 Urine Clarity Clear (Clear) 05/30/18 08:47 Urine pH 7.0 (5.0-8.0) 05/30/18 08:47 Ur Specific [place] < 1.005 (1.003-1.030) 05/30/18 08:47 Urine Protein Negative mg/dL (NEGATIVE) 05/30/18 08:47 Urine Glucose (UA) Neg mg/dL (Normal) 05/30/18 08:47 Urine Ketones Negative mg/dL (NEGATIVE) 05/30/18 08:47 Urine Blood Negative (NEGATIVE) 05/30/18 08:47 Urine Nitrate Negative (NEGATIVE) 05/30/18 08:47 Urine Bilirubin Negative (NEGATIVE) 05/30/18 08:47 Urine Urobilinogen 0.2-1.0 mg/dL (0.2-1.0) 05/30/18 08:47 Ur Leukocyte Esterase Neg Jhon/uL (Negative) 05/30/18 08:47 Urine RBC (Auto) < 1 /hpf (0-3) 05/30/18 08:47 Urine Microscopic WBC < 1 /hpf (0-5) 05/30/18 08:47 Ur Squamous Epith Cells 1 /hpf (0-5) 05/30/18 08:47 Discharge Exam - Head Exam Head Exam: NORMAL INSPECTION Discharge Plan - Follow Up Plan Condition: STABLE Disposition: HOME/ ROUTINE Instructions: Acute Abdomen (Belly Pain), Adult (DC) Additional Instructions: follow up with primary MD 1 week Follow up with Referrals: Vega Bojorquez MD [Staff Provider] -
== END 2018-06-01 14:19 | disposition home or self-care (01) ==
LOC: H.ER 07:46 → H.ERHOLD 14:51 → H.MEDSURG1 18:27
PROVIDERS: ADMIT Internal Medicine Pulmonary Disease; ATTEND Internal Medicine Pulmonary Disease
DX: R10.9 Unspecified abdominal pain (principal); E11.9 Type 2 diabetes mellitus without complications; I10 Essential (primary) hypertension; K59.00 Constipation, unspecified; D50.9 Iron deficiency anemia, unspecified
CPT/HCPCS: 36415; 71046; 72131; 74177; 76700; 80053; 80061; 81003; 81025; 82378; 82728; 82948; 83036; 83540; 83550; 83690; 84132; 84436; 84443; 85025; 90732; 96361; 96374; 96375; 96376; 99283; C9113; G0009; G0378; J1885; J2270; J7030; Q9967

== ENCOUNTER 2019-02-27 06:53 | Emergency (ER) | payer OTHER ==
[2019-02-27 07:05] VITALS: BP 134/84; PULSE 80; RESP 18; TEMP 98.3; O2SAT 98; BMI 30.6
--- NOTE | 2019-02-27 07:26 | ED PDOC ---
HPI: General Adult Time Seen by Provider: 02/27/19 07:17 Chief Complaint (Nursing): Wound Check Chief Complaint (Provider): Redness, selling, and pain to left hip History Per: Patient History/Exam Limitations: no limitations Onset/Duration Of Symptoms: Other (x1 week) Current Symptoms Are (Timing): Still Present Additional Complaint(s): 48 y/o female presents to the ER with redness, swelling, and pain for 1 week. Denies fever or chills. Patient reports area has been draining yellowish fluid. PMD: Buster Andrews Past Medical History Reviewed: Historical Data, Nursing Documentation, Vital Signs Vital Signs: Last Vital Signs Temp 98.3 F 02/27/19 07:03 Pulse 80 02/27/19 07:03 Resp 18 02/27/19 07:03 BP 134/84 02/27/19 07:03 Pulse Ox 98 02/27/19 07:03 Primary Care Provider: Buster Crawford - Medical History PMH: Anemia, Diabetes (diet and weight controlled), HTN (Controlled with diet/Weight loss) Denies: Chronic Kidney Disease - Surgical History Surgical History: Tonsillectomy - Family History Family History: States: Diabetes - Immunization History Hx Tetanus Toxoid Vaccination: No Hx Influenza Vaccination: No Hx Pneumococcal Vaccination: No - Home Medications Home Medications: Ambulatory Orders Medication Instructions Recorded Naproxen [Naprosyn] 500 mg PO Q12H #20 tab 02/27/19 Sulfamethoxazole/Trimethoprim 1 tab PO BID #20 tab 02/27/19 [Bactrim DS 800 mg-160 mg] - Allergies Allergies/Adverse Reactions: Allergies Allergy/AdvReac Type Severity Reaction Status Date / Time diphenhydramine HCl Allergy ANGIOEDEMA Verified 05/30/18 08:06 [From Benadryl] Review of Systems ROS Statement: Except As Marked, All Systems Reviewed And Found Negative Constitutional: Negative for: Fever, Chills Skin: Positive for: Other (redness, swelling and pain to left hip with yellowish fluid drainage) Physical Exam - Reviewed Nursing Documentation Reviewed: Yes Vital Signs Reviewed: Yes - Physical Exam Appears: Positive for: No Acute Distress Head Exam: Positive for: ATRAUMATIC, NORMOCEPHALIC Skin: Positive for: Normal Color, Warm, Dry Eye Exam: Positive for: Normal appearance Neck: Positive for: Normal, Painless ROM Cardiovascular/Chest: Positive for: Regular Rate, Rhythm Respiratory: Positive for: Normal Breath Sounds. Negative for: Wheezing, Respiratory Distress Extremity: Positive for: Normal ROM, Other (Left hip: 4cm x 3cm area of erythema with central induration; (-) fluctuance, (+) some serous drainage) Neurological/Psych: Positive for: Awake, Alert, Normal Tone - ECG O2 Sat by Pulse Oximetry: 98 (RA) Pulse Ox Interpretation: Normal Medical Decision Making Medical Decision Making: Initial Impression: Cellulitis Initial Plan: No evidence of abscess. Will place on antibiotics, warm compresses and follow up with PMD. Scribe Attestation: Documented by Real Bravo acting as a scribe for Deuce Singh MD. Provider Scribe Attestation: All medical record entries made by the Scribe were at my direction and personally dictated by me. I have reviewed the chart and agree that the record accurately reflects my personal performance of the history, physical exam, medical decision making, and the department course for this patient. I have also personally directed, reviewed, and agree with the discharge instructions and disposition. Disposition - Clinical Impression Clinical Impression: Cellulitis - Patient ED Disposition Is Patient to be Admitted: No Counseled Patient/Family Regarding: Studies Performed, Diagnosis, Need For Followup, Rx Given - Disposition Referrals: Buster Crawford MD [Primary Care Provider] - Disposition: Routine/Home Disposition Time: 07:25 Condition: FAIR Prescriptions: Naproxen [Naprosyn] 500 mg PO Q12H #20 tab Sulfamethoxazole/Trimethoprim [Bactrim DS 800 mg-160 mg] 1 tab PO BID #20 tab Instructions: Cellulitis and Erysipelas (Skin Infections) Forms: [facility] ([place])
== END 2019-02-27 08:00 | disposition home or self-care (01) ==
LOC: H.ER 06:53 → SUPCPDRO 06:53 → H.ER 08:00
DX: L03.116 Cellulitis of left lower limb (principal)